=== PATIENT | male | born 1950 | race American Indian/Alaskan Native ===

== ENCOUNTER 2021-02-19 08:46 | Outpatient (CLI) | payer MEDICARE ==
--- NOTE | 2021-02-19 09:34 | Mammography Report ---
DEXA BONE DENSITY SCAN INDICATION / CLINICAL INFORMATION: OSTEOPENIA/H/O PAGET'S DISEASE OF BONE. 70 years Male COMPARISON: 06/30/2015 LUMBAR SPINE (L1-L4): - Bone mineral density (BMD) = 1.227 g/cm2. - T-score = 1.3 - Z-score = 1.2 Change (%) since most recent prior (if available): 8.7% increase FEMORAL NECK: - Left neck Bone mineral density (BMD) = 0.768 g/cm2. - T-score = -2.0 - Z-score = -0.5 Change (%) since most recent prior (if available): 1.2% decrease IMPRESSION: 1. WHO Classification: Osteopenia. Fracture Risk: Increased. 2. 10-Year Fracture Risk (FRAX) = Major Osteoporotic Not reported. / Hip: Not reported.. BMD Reporting Guidelines (ISCD, 2015) BMD Reporting in Postmenopausal Women and in Men Age 50 and Older * T-scores are preferred. * The WHO densitometric classification is applicable. BMD Reporting in Females Prior to Menopause and in Males Younger Than Age 50 * Z-scores, not T-scores, are preferred. This is particularly important in children. * A Z-score of -2.0 or lower is defined as below the expected range for age, and a Z-score above -2. 0 is within the expected range for age. * Osteoporosis cannot be diagnosed in men under age 50 on the basis of BMD alone. * The WHO diagnostic criteria may be applied to women in the menopausal transition. http://www.iscd.org/official-positions/4816-jhys-idaxvgax-positions-adult/ Signer Name: Kayode Garza MD Signed: 02/19/2021 9:30 AM Workstation Name: [id number]
== END 2021-02-19 08:47 | disposition home or self-care (01) ==
LOC: SPVWC 08:46
PROVIDERS: ATTEND Family Medicine
DX: M85.88 Other specified disorders of bone density and structure, other site (principal); Z87.39 Personal history of other diseases of the musculoskeletal system and connective tissue
CPT/HCPCS: 77080